=== PATIENT | female | born 2000 | race Two or more races ===

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

== ENCOUNTER 2022-07-07 17:45 | Emergency (ER) | payer OTHER ==
[2022-07-07 19:09] VITALS: BP 145/74; PULSE 97; RESP 18; TEMP 98; BMI 44.8
== END 2022-07-07 21:45 | disposition home or self-care (01) ==
LOC: JER 17:45 → JERFT 17:45
DX: N76.89 Other specified inflammation of vagina and vulva (principal); N89.8 Other specified noninflammatory disorders of vagina
CPT/HCPCS: 87070; 87186; 87205; 99284-25